=== PATIENT | male | born 2005 | race Caucasian/White ===

== ENCOUNTER 2025-01-14 12:26 | Emergency (ER) | payer MEDICAID ==
[~2025-01-14] VITALS: Ht 177.8 cm; Wt 71.4 kg
[2025-01-14 12:38] VITALS: TEMP 97.8
[2025-01-14 15:36] LABS: MEAN PLATELET VOLUME 7.1 FL (7.4-10.4); RED CELL DISTRIBUTION WIDTH 19.1 % (11.5-14.5)
[2025-01-14 15:45] LABS: CREATININE 0.54 MG/DL (0.60-1.10); TOTAL CARBON DIOXIDE 30.4 MMOL/L (24-32); eCRCL 220 ML/MIN; eGFR > 90 ML/MIN
--- NOTE | 2025-01-14 16:09 | Physician Documentation ---
History of Present Illness ~ Chief Complaint: Numbness Stated Complaint: UNABLE TO WALK Time Seen by MD: 15:20 HPI 19-year-old male presents to the ED after recently been seen at [facility] for lower extremity numbness. He was evaluated and provided IV fluid and vitamins there. Was discovered that he has been abusing nitrous oxide. He also denies any acute injury or any incontinence or fevers or any other red flag symptoms Day of Onset: Jan 14, 2025 Medication Reconciliation Allergies: Coded Allergies: No Known Allergies (Unverified , 01/14/25) Review of Systems All Other Systems at this time: Reviewed and Negative ROS As stated above in the HPI, otherwise all systems are reviewed and negative. Physical Exam Vital Signs: Temperature: 97.8, Source: Temporal, Heart Rate: 82, Respiratory Rate: 18, BP: 113/68, Pulse Oximetry: 100, Weight: 71.400 Oxygen Flow Rate: 0 General Appearance General: Alert, no apparent distress. HEENT: PERRL, EOMI, no injection, moist mucous membranes. Extremities: Normal range of motion, no deformity. Neurologic: Oriented x4. Psychiatric: Normal mood and affect. Skin: Normal color, warm and dry. No edema, no ecchymosis. Progress Results/Orders Results/Orders Vital Signs 01/14/25 12:38 Temp 97.8 Pulse 82 Resp 18 B/P (MAP) 113/68 Pulse Ox 100 O2 Flow Rate 0 Laboratory Tests Test 01/14/25 15:05 White Blood Count 3.7 L Red Blood Count 4.01 L Hemoglobin 13.1 L Hematocrit 38.1 L Mean Corpuscular Volume 95.1 Mean Corpuscular Hemoglobin 32.7 H Mean Corpuscular Hemoglobin Concent 34.4 Red Cell Distribution Width 19.1 H Platelet Count 259 Mean Platelet Volume 7.1 L Neutrophils (%) (Auto) 37.7 L Lymphocytes (%) (Auto) 49.8 Monocytes (%) (Auto) 10.3 Eosinophils (%) (Auto) 2.0 Basophils (%) (Auto) 0.2 Neutrophils # (Auto) 1.4 L Lymphocytes # (Auto) 1.8 Monocytes # (Auto) 0.4 Eosinophils # (Auto) 0.1 Basophils # (Auto) 0.0 CBC Comment Sodium Level 142 Potassium Level 4.3 Chloride Level 107 Carbon Dioxide Level 30.4 Anion Gap 5 L Blood Urea Nitrogen 10 Creatinine 0.54 L Estimated GFR/1.73 m2 > 90 BUN/Creatinine Ratio 18.5 Glucose Level 84 Calcium Level 8.4 L Albumin 4.0 Chemistry Comments Medical Decision Making Findings Patient was advised to stop using nitrous oxide as he will eventually lose the ability to use his legs.. Going to him that this is likely the cause of his numbness in his legs. 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 Differential Dx:Considerations: Include: Flores's Palsey, CVA, Delirium tremens, DKA, Drug overdose, Electrolyte imbalance, Encephalopathy, Hypoxemia, Hypoglycemia, Mass lesion, Respiratory failure, Subarachnoid Hemorrhage, TIA, Other Departure Disposition: 01 HOME / SELF CARE / HOMELESS Impression: Primary Impression: Numbness of lower limb Additional Impressions: Nitrous oxide user Adverse effect of nitrous oxide Discharge Instructions: Chronic Drug Toxicity Referrals: NO PRIMARY CARE PROVIDER (PCP) Education Educated: Patient Educated regarding: diagnosis Signature Scribe Signature: l Attestation: Scribed for Arnaud Alaniz Inside [employer] by Arnaud Russo NP . 01/14/25 16:08 ARNAUD ALANIZ NP Jan 14, 2025 16:08
[2025-01-14] MEDS ORDERED: CYAN-34 PO (16:11)
[2025-01-14 16:19] VITALS: BP 121/98; PULSE 64; RESP 20; O2SAT 100
== END 2025-01-14 16:21 | disposition home or self-care (01) ==
LOC: ER 12:27
DX: R20.0 Anesthesia of skin (principal); T41.0X5A Adverse effect of inhaled anesthetics, initial encounter; Y92.89 Other specified places as the place of occurrence of the external cause
CPT/HCPCS: 80048; 85025; 99283

== ENCOUNTER 2025-01-21 11:06 | Emergency (ER) | payer MEDICAID ==
[~2025-01-21] VITALS: Ht 180.3 cm; Wt 68.2 kg
[~2025-01-21 11:06] MED LIST: CYAN-34 PO
[2025-01-21 11:14] VITALS: BP 109/64; PULSE 69; TEMP 98; O2SAT 100
--- NOTE | 2025-01-21 11:24 | Physician Documentation ---
History of Present Illness ~ Chief Complaint: See Chief Complaint Stated Complaint: LEG NUMBNESS Time Seen by MD: 11:18 HPI Year old male presents to the ED with ongoing numbness secondary to habitual nitrous oxide use. Recently seen here for his reported symptoms prescribed B12 in the outpatient setting. He is primarily here to get a work note releasing him to go back to work in her light duty specifications. He states that he is seeking access to a wheelchair and has stopped using nitrous Day of Onset: Jan 21, 2025 Tetanus witin 5 years: No Medication Reconciliation Allergies: Coded Allergies: No Known Allergies (Unverified , 01/21/25) Scheduled Cyanocobalamin (Vitamin B-12) (Vitamin B-12), 1 CAP PO DAILY Review of Systems All Other Systems at this time: Reviewed and Negative ROS As stated above in the HPI, otherwise all systems are reviewed and negative. Physical Exam Vital Signs: Temperature: 98.0, Source: Temporal, Heart Rate: 69, Respiratory Rate: 16, BP: 109/64, Pulse Oximetry: 100, Weight: 68.180 Oxygen Flow Rate: 0 Physical Exam General: Alert, no apparent distress. HEENT: PERRL, EOMI, no injection, moist mucous membranes. Extremities: Normal range of motion, no deformity. Neurologic: Oriented x4. diminish reflexes antalgic gait Psychiatric: Normal mood and affect. Skin: Normal color, warm and dry. No edema, no ecchymosis. 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 The prescribed B12 from previous visit I am going to clear him medically and report that he meets criteria for assistance via wheelchair or walker General Diff Dx:Considerations: Include: Abrasion, Contusion, Fracture, Hematoma, Laceration, Malunion, Neurovascular injury, Open fracture, Sprain, Ulcer, Other Knee Diff Dx:Considerations: Unlikely: Abrasion, Arthritis, Contusion, DJD, Fracture-femur, Fracture-fibula, Fracture-patella, Fracture-tibia, Gout, Hematoma, Laceration, Meniscus injury, Neurovascular injury, Open fracture, Rheumatoid arthritis, Septic, Sprain, Sprain-MCL, Sprain-LCL, Sprain-ACL, Sprain-PCL, Other Ankle Diff Dx:Considerations: Unlikely: Abrasion, Arthritis, Contusion, DJD, Fracture-metatarsal, Fracture-fibula, Fracture-tarsal, Fracture-tibia, Gout, Hematoma, Laceration, Malunion, Neurovascular injury, Nonunion, Open fracture, Osteomyelitis, Rheumatoid arthritis, Sprain, Septic, Ulcer, Other Foot Diff Dx:Considerations: Unlikely: Abrasion, Arthritis, Cellulitis, Contusion, Dislocation, DJD, Fracture-metatarsal, Fracture-phalynx, Fracture- tarsal, Gout, Hematoma, Ingrown toenail, Laceration, Malunion, Neurovascular injury, Open fracture, Paronychia, Puncture, Rheumatoid, Sprain, Septic, Subungual hematoma, Ulcer, Other Toe Diff Dx:Considerations: Unlikely: Abrasion, Cellulitis, Contusion, Dislocation, Felon, Fracture, Hematoma, Laceration, Neurovascular injury, Open fracture, Paronychia, Subungual hematoma, Other Departure Disposition: 01 HOME / SELF CARE / HOMELESS Impression: Primary Impression: Adverse effect of nitrous oxide Additional Impressions: Numbness of lower limb Nitrous oxide user Condition: Stable Additional Instructions: You meet criteria for utilizing an assisted device for ambulation which can include a walker or a wheelchair. return to work with the use social human services assistants devices to maintain mobility. I recommend that you establish care with a primary care provider in order to get a referral to go see a neurologist for evaluation of your symtpoms Referrals: NO PRIMARY CARE PROVIDER (PCP) Signature Scribe Signature: g Attestation: Scribed for Arnaud Alaniz Technical Support Manager by Arnaud Russo NP . 01/21/25 14:51 ARNAUD ALANIZ NP Jan 21, 2025 11:24
[2025-01-21 11:35] VITALS: RESP 16
== END 2025-01-21 11:36 | disposition home or self-care (01) ==
LOC: ER 11:07
DX: R20.0 Anesthesia of skin (principal); T41.0X5A Adverse effect of inhaled anesthetics, initial encounter; Y92.89 Other specified places as the place of occurrence of the external cause; Z79.899 Other long term (current) drug therapy
CPT/HCPCS: 99284